=== PATIENT | male | born 1970 | race Caucasian/White ===

== ENCOUNTER 2022-12-08 14:03 | Emergency (ER) | payer OTHER ==
[~2022-12-08] VITALS: Ht 177.8 cm; Wt 90.3 kg
--- NOTE | 2022-12-08 14:15 | ED Chest Pain ---
General Chief Complaint: Chest Pain Stated Complaint: CHEST PAIN Source: patient Exam Limitations: no limitations History of Present Illness Date Seen by Provider: Dec 08, 2022 Time Seen by Provider: 14:04 Initial Comments 52yoM with past medical history of hypertension coming in due to chest pain. This started about 20 minutes prior to arrival. It was a sharp discomfort that lasted a few seconds. The same thing happened several days ago where it lasted a few seconds as well. Other than that, it happened a few years ago, he saw sample taker operator and had a stress test which was unremarkable. He does take lisinopril for blood pressure, he noticed his blood pressure has been a little bit elevated this week with the highest around the 150s systolic. He doubled his dose of his lisinopril today. He has not had any aspirin. Otherwise denyin g any shortness of breath, fever, chills, nausea, vomiting, abdominal pain, weakness, numbness, rash, or any other concerns. Of note, there is a strong family history of aortic dissection with multiple family members dying in there 's. Allergies and Home Medications Allergies Coded Allergies: codeine (Verified Adverse Reaction, Mild, 12/08/22) vomiting Patient Home Medication List Home Medication List Reviewed: Yes Review of Systems Review of Systems Constitutional: No fever EENTM: No Symptoms Reported Respiratory: No Symptoms Reported Cardiovascular: See HPI Gastrointestinal: No Symptoms Reported Genitourinary: No Symptoms Reported Musculoskeletal: no symptoms reported Skin: no symptoms reported Psychiatric/Neurological: No Symptoms Reported Endocrine: No Symptoms Reported Hematologic/Lymphatic: No Symptoms Reported All Other Systems Reviewed Negative Unless Noted: Yes Past Agxwglf-Bukjta-Mziauu Hx Patient Social History Tobacco Use?: No Smokeless Tobacco Frequency: Current Everyday User Use of E-Cig and/or Vaping dev: No Past Medical History Surgery/Hospitalization HX: spine surgery Surgeries: Yes Tonsillectomy Physical Exam Vital Signs Vital Signs - First Documented 12/08/22 14:05 Temp 36.8 Pulse 79 Resp 14 B/P (MAP) 157/89 (111) Pulse Ox 98 O2 Delivery Room Air Capillary Refill : Height, Weight, BMI Height: '" Weight: lbs. oz. kg; BMI Method: General Appearance: No Apparent Distress, WD/WN HEENT: PERRL/EOMI, Normal ENT Inspection, Pharynx Normal Neck: Full Range of Motion, Normal Inspection, Non Tender, Supple Respiratory: Chest Non Tender, Lungs Clear, Normal Breath Sounds, No Accessory Muscle Use, No Respiratory Distress Cardiovascular: Regular Rate, Rhythm, No Edema, Normal Peripheral Pulses Gastrointestinal: Normal Bowel Sounds, Non Tender, Soft; No Distended, No Guarding Extremity: Normal Capillary Refill, Normal Inspection, Normal Range of Motion, Non Tender, No Calf Tenderness, No Pedal Edema Neurologic/Psychiatric: Alert, No Motor/Sensory Deficits, Normal Mood/Affect Skin: Normal Color, Warm/Dry Progress/Results/Core Measures Results/Orders Lab Results Laboratory Tests Test 12/08/22 14:10 12/08/22 15:30 Range/Units White Blood Count 6.1 4.3-11.0 10^3/uL Red Blood Count 5.49 4.30-5.52 10^6/uL Hemoglobin 16.6 13.3-17.7 g/dL Hematocrit 50 40-54 % Mean Corpuscular Volume 91 80-99 fL Mean Corpuscular Hemoglobin 30 25-34 pg Mean Corpuscular Hemoglobin Concent 33 32-36 g/dL Red Cell Distribution Width 13.1 10.0-14.5 % Platelet Count 229 130-400 10^3/uL Mean Platelet Volume 10.7 9.0-12.2 fL Immature Granulocyte % (Auto) 0 % Neutrophils (%) (Auto) 58 42-75 % Lymphocytes (%) (Auto) 26 12-44 % Monocytes (%) (Auto) 9 0-12 % Eosinophils (%) (Auto) 6 0-10 % Basophils (%) (Auto) 1 0-10 % Neutrophils # (Auto) 3.5 1.8-7.8 10^3/uL Lymphocytes # (Auto) 1.6 1.0-4.0 10^3/uL Monocytes # (Auto) 0.6 0.0-1.0 10^3/uL Eosinophils # (Auto) 0.3 0.0-0.3 10^3/uL Basophils # (Auto) 0.1 0.0-0.1 10^3/uL Immature Granulocyte # (Auto) 0.0 0.0-0.1 10^3/uL Prothrombin Time 12.4 12.2-14.7 SEC INR Comment 0.9 0.8-1.4 Activated Partial Thromboplast Time 28 24-35 SEC Sodium Level 141 135-145 MMOL/L Potassium Level 4.0 3.6-5.0 MMOL/L Chloride Level 101 98-107 MMOL/L Carbon Dioxide Level 27 21-32 MMOL/L Anion Gap 13 5-14 MMOL/L Blood Urea Nitrogen 13 7-18 MG/DL Creatinine 1.04 0.60-1.30 MG/DL Estimat Glomerular Filtration Rate 86 BUN/Creatinine Ratio 13 Glucose Level 98 70-105 MG/DL Calcium Level 10.2 H 8.5-10.1 MG/DL Corrected Calcium 8.5-10.1 MG/DL Magnesium Level 2.2 1.6-2.4 MG/DL Total Bilirubin 1.5 H 0.1-1.0 MG/DL Aspartate Amino Transf (AST/SGOT) 28 5-34 U/L Alanine Aminotransferase (ALT/SGPT) 32 0-55 U/L Alkaline Phosphatase 93 40-136 U/L Troponin I < 0.30 < 0.30 <0.30 NG/ML Total Protein 8.0 6.4-8.2 GM/DL Albumin 5.3 H 3.2-4.5 GM/DL Lipase 36 8-78 U/L My Orders Orders - JODY PRICE MD Cbc With Automated Diff (12/08/22 14:11) Magnesium (12/08/22 14:11) Chest 1 View Ap/Pa Only (12/08/22 14:11) Ekg Tracing (12/08/22 14:11) Comprehensive Metabolic Panel (12/08/22 14:11) Protime With Inr (12/08/22 14:11) Partial Thromboplastin Time (12/08/22 14:11) O2 (12/08/22 14:11) Monitor-Rhythm Ecg Trace Only (12/08/22 14:11) Ed Iv/Invasive Line Start (12/08/22 14:11) Lipase (12/08/22 14:11) Troponin I Fs (12/08/22 14:11) Aspirin Chewable Tablet (Aspirin Chewabl (12/08/22 14:45) Troponin I Fs (12/08/22 15:09) Lidocaine 2% Viscous 15 Ml (Xylocaine Vi (12/08/22 16:15) Famotidine Tablet (Famotidine Tablet) (12/08/22 16:13) Antacid Suspension (Antacid Suspension (12/08/22 16:15) Iohexol Injection (Omnipaque 350 Mg/Ml 1 (12/08/22 16:45) Received Contrast (Hold Metformin- Contr (12/08/22 16:45) Ns (Ivpb) 100 Ml (Sodium Chloride 0.9% 1 (12/08/22 16:45) Ct Angio Chest/Abd W(R/O Ad) (12/08/22 16:35) Medications Given in ED Current Medications Medications Dose Ordered Sig/Kiana Route Start Time Stop Time Status Last Admin Dose Admin Al Hydrox/Mg Hydrox/Simethicone 30 ml ONCE ONCE PO 12/08/22 16:15 12/08/22 16:16 DC 12/08/22 16:23 30 ML Aspirin 324 mg ONCE ONCE PO 12/08/22 14:45 12/08/22 14:46 DC 12/08/22 14:49 324 MG Iohexol 100 ml ONCE ONCE IV 12/08/22 16:45 12/08/22 16:46 DC 12/08/22 17:10 100 ML Lidocaine HCl 15 ml ONCE ONCE PO 12/08/22 16:15 12/08/22 16:16 DC 12/08/22 16:23 15 ML Sodium Chloride 100 ml ONCE ONCE IV 12/08/22 16:45 12/08/22 16:46 DC 12/08/22 17:10 80 ML Vital Signs/I&O 12/08/22 14:05 Temp 36.8 Pulse 79 Resp 14 B/P (MAP) 157/89 (111) Pulse Ox 98 O2 Delivery Room Air Progress Progress Note : Progress Note 52-year-old male with above history coming in due to chest pain. ABCs were intact and vitals were stable on presentation although he is mildly hypertensive. EKG ordered and interpreted by me showing no acute ischemic changes. An IV was placed and basic labs were obtained and were significant for normal white blood cell count, negative troponin x2, normal creatinine. Chest x-ray ordered and interpreted by me showing no obvious pneumonia or pneumothorax. I did a [id number] ultrasound showing no pericardial effusion and normal ejection fraction grossly. At this time, the patient mentioned to me that he has had numerous family members of aortic dissections, and he has been told that it was genetic. CTA chest then obtained and was negative for aortic dissection or any other abnormality. I believe the patient is stable for discharge with outpatient follow-up. He was sent home with strict return precautions Initial ECG Impression Date: Dec 08, 2022 Initial ECG Impression Time: 14:09 Initial ECG Rate: 72 Initial ECG Rhythm: Normal Sinus Comment Narrow QRS, normal axis, no significant ST changes or T wave abnormalities, no prior EKG to compare to Diagnostic Imaging Diagonstic Imaging: Xray (chest), CT (CTA chest ) Comments [facility] [place], [place] NAME: GEO FRANCIS [facility] REC#: [id number] PT STATUS: REG ER : 1970 PHYSICIAN: JODY PRICE MD ADMIT DATE: 12/08/22/ER FS Signed Date of Exam:12/08/22 CHEST 1 VIEW AP/PA ONLY EXAMINATION: Chest 1 view HISTORY: chest pain COMPARISON: None available. FINDINGS: Heart size and pulmonary vasculature are normal. The lungs are clear without consolidation, pleural effusion, or pneumothorax. The osseous structures are intact. IMPRESSION: 1. No acute radiographic abnormality in the chest. Dictated by: Dictated on workstation # [id number] Dict: 12/08/22 1437 Trans: 12/08/22 1456 [id number] Interpreted by: CHRISTIAN HUNT DO Electronically signed by: CHRISTIAN HUNT DO 12/08/22 1456 NAME: GEO FRANCIS [facility] REC#: [id number] PT STATUS: REG ER : 1970 PHYSICIAN: JODY PRICE MD ADMIT DATE: 12/08/22/ER FS Signed Date of Exam:12/08/22 CT ANGIO CHEST/ABD W(R/O AD) TECHNIQUE: CTA of the chest and abdomen was performed. 3D reformats were obtained and reviewed. Dose reduction techniques were utilized. REASON FOR EXAM: Chest pain. Family history of aortic dissection. COMPARISON: None. FINDINGS: No aneurysm or dissection in the thoracic or abdominal aorta. The heart size is normal. No pericardial effusion. The lungs are clear. No pleural effusion or pneumothorax. The liver, spleen, pancreas, adrenal glands and kidneys demonstrate no acute abnormality. The included loops of bowel are nondilated. No free fluid or free air. No lymphadenopathy in the abdomen or pelvis. No acute osseous abnormality. IMPRESSION: 1. No evidence of dissection or aneurysm in the thoracic or abdominal aorta. 2. No acute abnormality in the chest or abdomen. Dictated by: Dictated on workstation # [id number] Dict: 12/08/221721 Trans: 12/08/221726 [facility] [id number] Interpreted by: IVAN CHAN DO Electronically signed by: IVAN CHAN DO 12/08/221726 Departure Impression Primary Impression: Chest pain Qualified Codes: R07.82 - Intercostal pain Disposition: 01 HOME, SELF-CARE Condition: Improved Departure-Patient Inst. Decision time for Depature: 17:40 Referrals: CHARITY MUKHERJEE (PCP) Primary Care Physician Patient Instructions: Chest Pain, Adult ED Add. Discharge Instructions: We are not seeing any evidence of heart attack, blood clots, aortic dissection, or any other deadly cause of chest pain. Please follow-up with your regular doctor tomorrow as we discussed. JODY PRICE MD Dec 08, 2022 14:15
[2022-12-08 14:17] LABS: BASOPHILS # (AUTO) 0.1 10^3/uL (0.0-0.1); BASOPHILS % (AUTO) 1 % (0-10); EOSINOPHILS # (AUTO) 0.3 10^3/uL (0.0-0.3); EOSINOPHILS % (AUTO) 6 % (0-10); HEMATOCRIT 50 % (40-54); HEMOGLOBIN 16.6 g/dL (13.3-17.7); LYMPHOCYTES # (AUTO) 1.6 10^3/uL (1.0-4.0); LYMPHOCYTES % (AUTO) 26 % (12-44); MEAN CORPUSCULAR HEMOGLOBIN 30 pg (25-34); MEAN CORPUSCULAR HGB CONC 33 g/dL (32-36); MEAN CORPUSCULAR VOLUME 91 fL (80-99); MEAN PLATELET VOLUME 10.7 fL (9.0-12.2); MONOCYTES # (AUTO) 0.6 10^3/uL (0.0-1.0); MONOCYTES % (AUTO) 9 % (0-12); NEUTROPHILS # (AUTO) 3.5 10^3/uL (1.8-7.8); NEUTROPHILS % (AUTO) 58 % (42-75); PLATELET COUNT 229 10^3/uL (130-400); WHITE BLOOD COUNT 6.1 10^3/uL (4.3-11.0)
[2022-12-08 14:37] LABS: INR 0.9 (0.8-1.4); PROTHROMBIN TIME PATIENT 12.4 SEC (12.2-14.7)
[2022-12-08 14:38] LABS: ALANINE AMINOTRANSFERASE 32 U/L (0-55); ALKALINE PHOSPHATASE 93 U/L (40-136); BILIRUBIN,TOTAL 1.5 MG/DL (0.1-1.0); BUN/CREATININE RATIO 13; CALCIUM 10.2 MG/DL (8.5-10.1); CARBON DIOXIDE 27 MMOL/L (21-32); CHLORIDE 101 MMOL/L (98-107); CREATININE SERUM 1.04 MG/DL (0.60-1.30); GFR ESTIMATED 86; GLUCOSE 98 MG/DL (70-105); MAGNESIUM 2.2 MG/DL (1.6-2.4); SODIUM 141 MMOL/L (135-145)
[2022-12-08 14:39] LABS: ALBUMIN 5.3 GM/DL (3.2-4.5); LIPASE 36 U/L (8-78)
[2022-12-08] MEDS ORDERED: ASPIRIN 81 MG CHEWABLE TABLET PO ONE (14:45)
--- NOTE | 2022-12-08 14:53 | Diagnostic Imaging Report ---
EXAMINATION: Chest 1 view HISTORY: chest pain COMPARISON: None available. FINDINGS: Heart size and pulmonary vasculature are normal. The lungs are clear without consolidation, pleural effusion, or pneumothorax. The osseous structures are intact. IMPRESSION: 1. No acute radiographic abnormality in the chest. Dictated by: Dictated on workstation # [id number]
[2022-12-08] MEDS ORDERED: FAMOTIDINE 20 MG TABLET PO STA (16:13)
[2022-12-08] MEDS ORDERED: ANTACID SUSPENSION 30 ML UDC PO ONE (16:15)
[2022-12-08] MEDS ORDERED: LIDOCAINE 2% VISCOUS 15 ML UDC PO ONE (16:15)
[2022-12-08] MEDS ORDERED: IOHEXOL 350 MG/ML 100 ML (OMNIPAQUE 350) VIAL IV ONE (16:45)
[2022-12-08] MEDS ORDERED: NS 100 ML (IVPB) BAG IV ONE (16:45)
[2022-12-08] MEDS ORDERED: HOLD METFORMIN - RECEIVED CONTRAST 20 ML VIAL IV SCH (16:45)
--- NOTE | 2022-12-08 17:27 | Diagnostic Imaging Report ---
TECHNIQUE: CTA of the chest and abdomen was performed. 3D reformats were obtained and reviewed. Dose reduction techniques were utilized. REASON FOR EXAM: Chest pain. Family history of aortic dissection. COMPARISON: None. FINDINGS: No aneurysm or dissection in the thoracic or abdominal aorta. The heart size is normal. No pericardial effusion. The lungs are clear. No pleural effusion or pneumothorax. The liver, spleen, pancreas, adrenal glands and kidneys demonstrate no acute abnormality. The included loops of bowel are nondilated. No free fluid or free air. No lymphadenopathy in the abdomen or pelvis. No acute osseous abnormality. IMPRESSION: 1. No evidence of dissection or aneurysm in the thoracic or abdominal aorta. 2. No acute abnormality in the chest or abdomen. Dictated by: Dictated on workstation # [id number]
[2022-12-08 17:43] VITALS: BP 136/83
== END 2022-12-08 17:44 | disposition home or self-care (01) ==
LOC: ER FS 14:06
DX: R07.89 Other chest pain (principal); I10 Essential (primary) hypertension; F17.200 Nicotine dependence, unspecified, uncomplicated; Z79.899 Other long term (current) drug therapy
CPT/HCPCS: 36415; 71045; 71275; 74175; 80053; 83690; 83735; 84484; 85025; 85610; 85730; 93005; 93041; Q9967